=== PATIENT | female | born 1975 | race Caucasian/White ===

== ENCOUNTER 2018-06-08 20:09 | Emergency (ER) | payer MEDICAID ==
[~2018-06-08] VITALS: Ht 162.6 cm; Wt 90.7 kg
[2018-06-08] MEDS ORDERED: KETOROLAC TROMETH 30 MG/ML 1ML VIAL IV ONE (20:30)
[2018-06-08] MEDS ORDERED: SODIUM CHLORIDE 0.9% 1,000 ML IVB ONE (20:30)
[2018-06-08 21:35] LABS: Albumin 3.2 g/dL (3.4-5.0); Anion Gap 6 (5-15); Blood Urea Nitrogen 11 mg/dL (7-18); Carbon Dioxide 27 mmol/L (21-32); Chloride 111 mmol/L (98-107); Glucose 106 mg/dL (74-106); Magnesium 2.4 mg/dL (1.6-2.6); Potassium 3.4 mmol/L (3.5-5.1); Sodium 144 mmol/L (136-145)
[2018-06-08 21:36] LABS: Basophils # (auto) 0 uL; Basophils % (auto) 0.3 % (0.0-2.0); Eosinophils # (auto) 0.1 uL; Eosinophils % (auto) 1.8 % (0.0-7.0); Hematocrit 38.6 % (36.0-46.0); Hemoglobin 12.6 g/dL (12.2-16.2); Lymphocytes # (auto) 2.2 uL; Lymphocytes % (auto) 33.3 % (10.0-50.0); Mean Corpuscular Hemoglobin 31.1 pg (28.0-32.0); Mean Corpuscular Hgb Conc. 32.7 g/dL (32.0-36.0); Mean Corpuscular Volume 95.1 fL (80.0-100.0); Monocytes # (auto) 0.5 uL; Monocytes % (auto) 7.1 % (0.0-12.0); Neutrophils # (auto) 3.9 uL; Neutrophils % (auto) 57.5 % (37.0-80.0); Nucleated Red Blood Cells % 0.1 %; Platelet Count (auto) 193 10^3/uL (140-450); Red Blood Cells 4.06 10^6/uL (4.0-5.20); Red Cell Distribution Width 14.2 % (11.8-14.3); White Blood Cell 6.7 10^3/uL (4.4-10.8)
[2018-06-08 21:37] LABS: INR 0.93 (0.9-1.15); Partial Thromboplastin Time 27.3 sec (23.78-33.04)
[2018-06-08 21:40] LABS: Alanine Aminotransferase 29 U/L (13-56); Alkaline Phosphatase 90 U/L (45-117); Aspartate Aminotransferase 25 U/L (15-37); BUN/Creatinine Ratio 14.7; Bilirubin, Total 0.3 mg/dL (0.2-1.0); GFR African American 110 mL/min; GFR Non-African American 91 mL/min
[2018-06-08 21:57] VITALS: BP 133/91
== END 2018-06-08 23:12 | disposition home or self-care (01) ==
LOC: EDBD 20:09 → ER 20:09
DX: R07.89 Other chest pain (principal); J45.909 Unspecified asthma, uncomplicated; E78.5 Hyperlipidemia, unspecified; I10 Essential (primary) hypertension; I25.2 Old myocardial infarction; F17.210 Nicotine dependence, cigarettes, uncomplicated; F12.90 Cannabis use, unspecified, uncomplicated; F15.90 Other stimulant use, unspecified, uncomplicated; Z59.0 Homelessness
CPT/HCPCS: 36415; 71045; 80053; 83735; 83880; 84484; 85025; 85610; 85730; 93005; 94761; 96374; 99284; J1885; J7030; 96361

== ENCOUNTER 2020-05-15 04:11 | Emergency (ER) | payer MEDICAID ==
[~2020-05-15] VITALS: Ht 162.6 cm; Wt 113.4 kg
[2020-05-15 04:20] VITALS: BP 143/76
== END 2020-05-15 07:38 | disposition left against medical advice (07) ==
LOC: ER 04:11
DX: R21 Rash and other nonspecific skin eruption (principal); Z53.21 Procedure and treatment not carried out due to patient leaving prior to being seen by health care provider

== ENCOUNTER 2021-04-03 14:04 | Emergency (ER) | payer MEDICAID, OTHER ==
[~2021-04-03] VITALS: Ht 162.6 cm; Wt 117.9 kg
[2021-04-03 17:02] VITALS: BP 144/102
== END 2021-04-03 18:23 | disposition left against medical advice (07) ==
LOC: ER 14:04
DX: M79.621 Pain in right upper arm (principal); I10 Essential (primary) hypertension; J45.909 Unspecified asthma, uncomplicated; E78.5 Hyperlipidemia, unspecified; Z98.51 Tubal ligation status; V43.52XA Car driver injured in collision with other type car in traffic accident, initial encounter; Y93.89 Activity, other specified; Y92.89 Other specified places as the place of occurrence of the external cause; Y99.8 Other external cause status
CPT/HCPCS: 93971

== ENCOUNTER 2023-05-12 04:31 | Emergency (ER) | payer MEDICAID, OTHER ==
[~2023-05-12] VITALS: Ht 162.6 cm; Wt 103.0 kg
[2023-05-12 05:14] VITALS: BP 168/109; PULSE 100; RESP 18; O2SAT 97
[2023-05-12 05:50] LABS: Basophils # (auto) 0.1 10 ^3/uL (0-0.2); Basophils % (auto) 0.6 % (0.0-2.0); Eosinophils # (auto) 0.2 10 ^3/uL (0-0.8); Eosinophils % (auto) 1.8 % (0.0-7.0); Hematocrit 40.7 % (36.0-46.0); Lymphocytes # (auto) 2.1 10 ^3/uL (0.4-5.4); Lymphocytes % (auto) 24.2 % (10.0-50.0); Mean Corpuscular Hemoglobin 29.5 pg (28.0-32.0); Mean Corpuscular Volume 92.1 fL (80.0-100.0); Monocytes # (auto) 0.5 10 ^3/uL (0-1.3); Monocytes % (auto) 5.8 % (0.0-12.0); Neutrophils % (auto) 67.6 % (37.0-80.0); Red Blood Cells 4.42 10^6/uL (4.0-5.20); Red Cell Distribution Width 16.6 % (11.8-14.3); White Blood Cell 8.8 10^3/uL (4.4-10.8)
[2023-05-12 06:14] LABS: Alanine Aminotransferase 15 U/L (7-40); Albumin 4.5 g/dL (3.2-4.8); Alkaline Phosphatase 100 U/L (46-116); Anion Gap 7 (5-15); Aspartate Aminotransferase 19 U/L (13-40); BUN/Creatinine Ratio 8.8 (10.0-20.0); Bilirubin, Total 0.2 mg/dL (0.2-1.0); Blood Urea Nitrogen 7 mg/dL (9-23); Calcium 8.9 mg/dL (8.7-10.4); Carbon Dioxide 23 mmol/L (20-30); Chloride 111 mmol/L (98-107); Glucose 80 mg/dL (74-106); Potassium 3.4 mmol/L (3.5-5.1); Sodium 141 mmol/L (136-145); Total Protein 7.6 g/dL (5.7-8.2)
== END 2023-05-12 10:37 | disposition left against medical advice (07) ==
LOC: ER 04:31
DX: M79.642 Pain in left hand (principal); M79.641 Pain in right hand; M79.89 Other specified soft tissue disorders; Z53.21 Procedure and treatment not carried out due to patient leaving prior to being seen by health care provider
CPT/HCPCS: 36415; 80053; 85025

== ENCOUNTER 2024-05-24 17:43 | Emergency (ER) | payer MEDICAID ==
[~2024-05-24] VITALS: Ht 162.6 cm; Wt 95.0 kg
[2024-05-24 18:00] VITALS: BP 133/89; PULSE 106; RESP 18; O2SAT 96
== END 2024-05-24 19:56 | disposition left against medical advice (07) ==
LOC: ER 17:43
DX: R30.9 Painful micturition, unspecified (principal); R20.8 Other disturbances of skin sensation; M54.59 Other low back pain; Z53.21 Procedure and treatment not carried out due to patient leaving prior to being seen by health care provider

== ENCOUNTER 2024-06-01 10:28 | Emergency (ER) | payer MEDICAID ==
[~2024-06-01] VITALS: Ht 162.6 cm; Wt 97.8 kg
[2024-06-01 11:11] VITALS: BP 142/87; PULSE 105; RESP 16; O2SAT 100
[2024-06-01] MEDS ORDERED: SODIUM CHLORIDE 0.9% 1,000 ML IV ONE (11:15)
[2024-06-01] MEDS ORDERED: cefTRIAXone 1GM/50ML D5W 50 ML IV ONE (11:15)
--- NOTE | 2024-06-01 11:24 | ED.PDOC ---
General HPI Comments HPI: Poor Historian. 48-year-old female complains of two day history of urinary symptoms of increased urinary frequency and right flank pain. She went to urgent care two days ago and was prescribed Keflex. Patient states having a fever at home but she is afebrile here in triage. Pain is constant. She had history of kidney infections in the past and she says that it feels just like it. Denies any other acute symptoms. Pain scale is 3/10. Patient had two day use of the Keflex antibiotics. Past Medcial History: Hypertension, depression, migraines, asthma, kidney infection, dissociative identity disorder Past Surgical History: Left ankle surgery, tonsillectomy, bilateral tubal ligations. REVIEW OF SYSTEMS: CONSTITUTIONAL: Denies acute: fever, diaphoresis, chills, generalized weakness. HEAD: Denies acute: headache, photophobia Eyes: Denies acute: Double vision, vision loss, eye pain, eye discharge. EARS: Denies acute: tinnitus, hearing loss, ear discharge, ear pain, THROAT: Denies acute: sore throat, swelling, difficulty swallowing , pain with swallowing, change in voice. NECK: Denies acute: neck pain, neck swelling, stiff neck. HEART: Denies acute : chest pain, palpitations, LUNGS: Denies acute: SOB, wheezing, cough, hemoptysis ABDOMEN: Denies acute: abdominal pain, Nausea, Vomiting, diarrhea, melena , hematemesis, hematochezia SKIN: Denies acute: rash, redness, lesions, itchiness. EXTREMITIES: Denies acute: calf pain, numbness, tingling, weakness, denies pain in extremity. Denies acute: Low back pain. Neuro: Denies acute: focal neurological deficit, motor or sensory focal neurological deficit, tremors, seizure like activity, confusion, dizziness, change in mental status, loss of bowel or bladder function, cauda equina like symptoms. : Denies acute: dysuria, hematuria, PSYCH: Denies acute: hallucination, suicidal ideation, homicidal ideation. FEMALE: Denies acute: abnormal vaginal bleeding, foul odor, unusual discharge. PHYSICAL EXAM: General: no acute distress, awake and alert. Head: normocephalic, atraumatic. Neck: supple, trachea is midline, no swelling. Throat: Normal phonation. Eyes:, no erythema, no purulent discharge, no proptosis, no icterus. Heart: regular rate, regular rhythm, no significant murmur appreciated. Lungs: no apparent respiratory distress, Able to speak in full sentences. No wheezing, no rhonchi, no crackles. No stridors Clear to auscultation bilaterally. Abdomen: non tender to palpation, non distended, soft, no guarding, no rebound, + bowel sounds. Neuro: Awake, Alert, oriented to name, self, situation, follows commands GCS=15. Speech is normal. Skin: no petechia, no purpura, no cyanosis, non-pale, not jaundice. Lower extremities: --no - Pitting edema no deformity, no focal swelling, no calf TTP. Makes eye contact. moves all four extremities. Face: no apparent facial droop. Right CVA tenderness to percussion Ambulating in the ED independently. Ears: Normal appearing TM b/l, Stroke: finger to nose cerebellar testing is intact. No pronator drift. 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 Was a procedure done?: No Differential Diagnosis Kidney stone (Female): Other (Flank Pain;DDX include Nephrolethiasis, obstructive uropathy, kidney cancer, renal infarct, intraabdominal neoplasm, lower lobe pneumonia, retroperitoneal hemorrhage, pancreatitis, aneurysm, dissection, musculoskeletal, rib contusion/trauma, hematoma, PYLONEPHRITIS, muscle strain, spinal disease. IN A FEMALE) X-Ray, Labs, Meds, VS Vital Signs Date Time Temp Pulse Resp B/P (MAP) Pulse Ox O2 Delivery O2 Flow Rate FiO2 06/01/24 11:11 99.5 105 16 142/87 (105) 100 Time of 1ST Reevaluation: 13:33 (Patient eloped) Reevaluation 1ST: N/A Patient Education/Counseling: Other (Patient eloped) Family Education/Counseling: No Family Present Comments Patient eloped. Initially I ordered labs and CT scan and urinalysis but I was notified later that the patient eloped. I also ordered Rocephin Departure 1 Departure Time of Disposition: 13:33 Impression: Primary Impression: Right flank pain Additional Impressions: Urinary tract infection symptoms Eloped from emergency department Disposition: 07 LEFT AWOL/ELOPED Condition: Stable Additional Instructions: Patient eloped Discharged With: Self Critical Care Note Critical Care Time?: No ISACC WISEMAN DO Jun 01, 2024 11:24
== END 2024-06-01 12:34 | disposition left against medical advice (07) ==
LOC: ER 10:28
DX: N39.0 Urinary tract infection, site not specified (principal); I10 Essential (primary) hypertension; J45.909 Unspecified asthma, uncomplicated; F17.210 Nicotine dependence, cigarettes, uncomplicated; Z59.00 Homelessness unspecified; Z88.1 Allergy status to other antibiotic agents; Z90.89 Acquired absence of other organs; Z98.51 Tubal ligation status